=== PATIENT | male | born 1985 | race Two or more races ===

== ENCOUNTER 2019-10-18 14:23 | Emergency (ER) | payer SELFPAY ==
[~2019-10-18] VITALS: Ht 172.7 cm; Wt 75.0 kg
[2019-10-18 14:28] VITALS: BP 152/88
--- NOTE | 2019-10-18 14:42 | PHYS DOC ---
Adult General Chief Complaint Chief Complaint: LACERATION/AVULSION HPI HPI Patient is a 34 year old male who presents secondary to head laceration. He had a pallet fall on his head just prior to arrival and has a 4 cm laceration to the right occipital region without loss of consciousness. Tet anus status is not updated. Feeling normal now. Review of Systems Review of Systems Constitutional: Denies fever or chills [] Eyes: Denies change in visual acuity, redness, or eye pain [] HENT: Denies nasal congestion or sore throat [] Respiratory: Denies cough or shortness of breath [] Cardiovascular: No additional information not addressed in HPI [] GI: Denies abdominal pain, nausea, vomiting, bloody stools or diarrhea [] : Denies dysuria or hematuria [] Musculoskeletal: Denies back pain or joint pain [] Integument: Denies rash or skin lesions [] Neurologic: Denies headache, focal weakness or sensory changes [] Endocrine: Denies polyuria or polydipsia [] All other systems were reviewed and found to be within normal limits, except as documented in this note. Current Medications Current Medications Current Medications Medications (Trade) Dose Ordered Sig/Hero Start Time Stop Time Status Last Admin Dose Admin Acetaminophen/ Hydrocodone Bitart (Lortab 5/325) 1 tab 1X ONCE 10/18/19 14:45 10/18/19 14:46 Allergies Allergies Allergies Coded Allergies Type Severity Reaction Last Updated Verified No Known Drug Allergies 10/18/19 No Physical Exam Physical Exam Constitutional: Well developed, well nourished, no acute distress, non-toxic appearance. [] HENT: Normocephalic, 4 cm laceration to the right occipital region, bilateral external ears normal, oropharynx moist, no oral exudates, nose normal. [] Eyes: PERRLA, EOMI, conjunctiva normal, no discharge. [] Neck: Normal range of motion, no tenderness, supple, no stridor. [] Cardiovascular:Heart rate regular rhythm, no murmur [] Lungs & Thorax: Bilateral breath sounds clear to auscultation [] Abdomen: Bowel sounds normal, soft, no tenderness, no masses, no pulsatile masses. [] Skin: Warm, dry, no erythema, no rash. [] Back: No tenderness, no CVA tenderness. [] Extremities: No tenderness, no cyanosis, no clubbing, ROM intact, no edema. [] Neurologic: Alert and oriented X 3, normal motor function, normal sensory function, no focal deficits noted. [] Psychologic: Affect normal, judgement normal, mood normal. [] EKG EKG [] Radiology/Procedures Radiology/Procedures 4 cm-laceration was cleaned with saline by nursing staff and closed with 4 prabhu by myself. Patient tolerated well. Course & Med Decision Making Course & Med Decision Making Pertinent Labs and Imaging studies reviewed. (See chart for details) Tetanus updated prior to discharge. Given [place] for pain. Dragon Disclaimer Dragon Disclaimer This electronic medical record was generated, in whole or in part, using a voice recognition dictation system. Departure Departure Impression: Primary Impression: Laceration of head Disposition: 01 HOME, SELF-CARE Condition: STABLE Referrals: NO PCP (PCP) Patient Instructions: Staple Care and Removal Additional Instructions: Please follow up with your doctor or return to the ER or go to Urgent care for staple removal in 7-10 days. JANY ONOFRE DO Oct 18, 2019 14:41
[2019-10-18] MEDS ORDERED: HYDROcodone/APAP 5/325MG 1 TAB TABLET PO ONE (14:45)
[2019-10-18] MEDS ORDERED: DIPH,PERTUSS(ACELL),TET VAC/PF 0.5 ML SYRINGE. VAX IM ONE (15:00)
== END 2019-10-18 15:11 | disposition home or self-care (01) ==
LOC: ER 14:23
DX: S01.81XA Laceration without foreign body of other part of head, initial encounter (principal); W19.XXXA Unspecified fall, initial encounter; Y93.89 Activity, other specified; Y92.89 Other specified places as the place of occurrence of the external cause; Y99.8 Other external cause status
CPT/HCPCS: 12013; 90471; 90715; 99283

== ENCOUNTER 2021-06-28 08:30 | Emergency (ER) | payer SELFPAY ==
[~2021-06-28] VITALS: Ht 165.1 cm; Wt 68.0 kg
[2021-06-28 11:15] LABS: BILIRUBIN,URINE NEGATIVE (NEG); CLARITY,URINE CLEAR; COLOR,URINE YELLOW; NITRITE,URINE NEGATIVE (NEG); PH,URINE 5.5 (<5.0-8.0); PROTEIN,URINE NEGATIVE (NEG-TRACE); UROBILINOGEN,URINE 0.2 mg/dL (0.2 mg/dL)
[2021-06-28 11:27] LABS: BACTERIA,URINE 0 /HPF (0-FEW); RBC,URINE 0 /HPF (0-2); WBC,URINE OCC /HPF (0-4)
[2021-06-28] MEDS ORDERED: MORPHINE SULFATE 4 MG/ML INJ. IVP ONE (11:45)
[2021-06-28] MEDS ORDERED: ONDANSETRON PF 4 MG/2 ML VIAL. IVP ONE (11:45)
[2021-06-28] MEDS ORDERED: IV NORMAL SALINE 1000ML BAG 1,000 ML IV ONE (11:45)
--- NOTE | 2021-06-28 11:47 | PHYS DOC ---
Past Medical History Past Medical History: No Pertinent History Past Surgical History: No Surgical History Smoking Status: Never Smoker Alcohol Use: Occasionally General Adult EDM: Chief Complaint: GROIN PAIN HPI: HPI: Patient is a 36 year old male who presents with left-sided groin, testicular, and left-sided flank pain for 5 days. Patient is complaining of pain with urination. Patient reports nausea but denies vomiting or fever. Denies trauma. Patient states he is sexually active with his . Denies multiple partners. Reports taking Tylenol couple days ago with little pain relief. Rating pain 8/10. Denies any other medical history. Review of Systems: Review of Systems: ROS At least 10 ROS systems have been reviewed and are negative except as documented in the HPI. General: Negative except as outlined in HPI above. Skin: Negative except as outlined in HPI above. HEENT: Negative except as outlined in HPI above. Neck: Negative except as outlined in HPI above. Respiratory: Negative except as outlined in HPI above.. Cardiovascular: Negative except as outlined in HPI above. Abdomen: Negative except as outlined in HPI above. : Negative except as outlined in HPI above. Back/MSK: Negative except as outlined in HPI above. Neuro: Negative except as outlined in HPI above. Psych: Negative except as outlined in HPI above. Heart Score: C/O Chest Pain: No Risk Factors: Risk Factors: DM, Current or recent (<one month) smoker, HTN, HLP, family history of CAD, obesity. Risk Scores: Score 0 - 3: 2.5% MACE over next 6 weeks - Discharge Home Score 4 - 6: 20.3% MACE over next 6 weeks - Admit for Clinical Observation Score 7 - 10: 72.7% MACE over next 6 weeks - Early Invasive Strategies Current Medications: Current Medications Medications (Trade) Dose Ordered Sig/Hero Start Time Stop Time Status Last Admin Dose Admin Morphine Sulfate (Morphine Sulfate) 4 mg 1X ONCE 06/28/21 11:45 06/28/21 11:46 Ondansetron HCl (Zofran) 4 mg 1X ONCE 06/28/21 11:45 06/28/21 11:46 Allergies: Allergies: Allergies Coded Allergies Type Severity Reaction Last Updated Verified No Known Drug Allergies 10/18/19 No Physical Exam: PE: Constitutional: Well developed, well nourished, no acute distress, non-toxic appearance. [] HENT: Normocephalic, atraumatic, bilateral external ears normal, oropharynx moist, no oral exudates, nose normal. [] Eyes: PERRLA, EOMI, conjunctiva normal, no discharge. [] Neck: Normal range of motion, no tenderness, supple, no stridor. [] Cardiovascular:Heart rate regular rhythm, no murmur [] Lungs & Thorax: Bilateral breath sounds clear to auscultation [] Abdomen: Bowel sounds normal, soft, left lower quadrant tenderness, no hernia. Left testicletenderness noted, no swelling or warmth to area. Skin: Warm, dry, no erythema, no rash. [] Back: No tenderness, no CVA tenderness. [] Extremities: No tenderness, no cyanosis, no clubbing, ROM intact, no edema. [] Neurologic: Alert and oriented X 3, normal motor function, normal sensory function, no focal deficits noted. [] Psychologic: Affect normal, judgement normal, mood normal. [] Current Patient Data: Labs: Laboratory Tests Test 06/28/21 10:50 Urine Collection Type Void Urine Color Yellow Urine Clarity Clear Urine pH 5.5 (<5.0-8.0) Urine Specific [place] 1.025 (1.000-1.030) Urine Protein Negative mg/dL (NEG-TRACE) Urine Glucose (UA) Negative mg/dL (NEG) Urine Ketones (Stick) Negative mg/dL (NEG) Urine Blood Negative (NEG) Urine Nitrite Negative (NEG) Urine Bilirubin Negative (NEG) Urine Urobilinogen Dipstick 0.2 mg/dL (0.2 mg/dL) Urine Leukocyte Esterase Negative (NEG) Urine RBC 0 /HPF (0-2) Urine WBC Occ /HPF (0-4) Urine Squamous Epithelial Cells Few /LPF Urine Bacteria 0 /HPF (0-FEW) Urine Mucus Marked /LPF Vital Signs: Vital Signs Date Time Temp Pulse Resp B/P (MAP) Pulse Ox O2 Delivery O2 Flow Rate FiO2 06/28/21 10:05 98.5 60 16 149/92 (111) 100 Room Air 98.5 EKG: EKG: [] Radiology/Procedures: Radiology/Procedures: []Examination: CT of the abdomen pelvis without contrast HISTORY: History of left lower abdominal pain COMPARISON: None available TECHNIQUE: Axial CT images of the abdomen pelvis are performed without contrast. Coronal and sagittal reformats are performed. Exposure: One or more of the following individualized dose reduction techniques were utilized for this examination: 1. Automated exposure control 2. Adjustment of the mA and/or kV according to patient size 3. Use of iterative reconstruction technique FINDINGS: Moderate consolidation changes identified in the right lower lobe of the lung likely infiltrate or pneumonia. No evidence of free air identified in the abdomen The evaluation of the solid organs is limited due to lack of IV contrast. The evaluation of bowel is limited due to lack of oral contrast. The visualized noncontrasted liver, spleen, adrenals grossly appears unremarkable. The gallbladder is mildly distended. The stomach is mildly distended with visualized pancreas grossly appears unremarkable. Small bowel is nondilated. Mild thickened appearance of the wall of the distal ileum just proximal to the ileocecal junction. The appendix is not well-visualized. The urinary bladder is mildly distended No evidence of lytic bony destructive lesion. IMPRESSION: 1. Mild thickened appearance of the wall of the distal ileal loops could be mild enteritis. 2. Focal consolidation right lower lobe of the lung likely pneumonia. Follow-up to resolution. Electronically signed by: Oneal Romo MD (06/28/2021 12:11 PM) [id number] EXAMINATION: US TESTICULAR, 06/28/2021 11:40 AM CLINICAL INDICATION: Left-sided testicular pain TECHNIQUE: Grayscale, color and spectral Doppler ultrasound images of the scrotum and testicles COMPARISON: None. FINDINGS: The right testicle measures 4.3 x 2.8 x 1.9 cm. The left testicle 4.3 x 2.8 x 2.1 cm. Both testicles are normal in echogenicity and homogeneous without evidence of mass. There is normal testicular blood flow bilaterally. There is a 1.1 cm anechoic left epididymal head cyst. Epididymides are otherwise normal in appearance. No hydrocele. IMPRESSION: 1. No acute abnormality of the testicles. 2. Left epididymal head cyst. Electronically signed by: Radha Rahman MD (06/28/2021 12:27 PM) [id number] Course & Med Decision Making: Course & Med Decision Making Pertinent Labs and Imaging studies reviewed. (See chart for details) [] 36-year-old male presents with left-sided lower abdominal tenderness that radiates to left testicle. Patient is also reporting some left-sided flank pain. Work-up in ER consist of labs, urinalysis, GC/chlamydia, CT abdomen and pelvis, ultrasound of testicle. UA is negative for infection or blood. CBC, CMP negative for acute abnormality. CT of abdomen pelvis and ultrasound of testicles are also unremarkable. Patient was likely has recently passed a kidney stone which is causing discomfort. Discussed results with patient. Advised patient to take ibuprofen for pain. Patient should follow-up with his PCP in the next few days. Advised patient to return to emergency room with worsening symptoms or concerns. Patient verbalizes he understands discharge instructions. Patient is hemodynamically stable upon disposition Dragon Disclaimer: [place] Disclaimer: This electronic medical record was generated, in whole or in part, using a voice recognition dictation system. Departure Departure Impression: Primary Impression: Abdominal pain Qualified Codes: R10.32 - Left lower quadrant pain Additional Impression: Dysuria Disposition: HOME / SELF CARE / HOMELESS Condition: STABLE Referrals: NO PCP (PCP) Patient Instructions: Abdominal Pain (Nonspecific) Additional Instructions: You were seen in the emergency room for left lower abdominal pain that radiated down to your groin. All of your labs were unremarkable. Ultrasound and CT of your abdomen were both unremarkable. Urine is negative for infection. Take ibuprofen at home for pain. Please follow-up with your PCP in the next few days. Return emergency room if you have worsening symptoms or concerns. EMERGENCY DEPARTMENT GENERAL DISCHARGE INSTRUCTIONS Thank you for coming to [facility] Emergency Department (ED) today and trusting us with you care. We trust that you had a positive experience in our Emergency Department. If you wish to speak to the department management, you may call the Director at [phone]. YOUR FOLLOW UP INSTRUCTIONS ARE FOLLOWS: 1. Do you have a private Doctor? If you do not have a private doctor, please ask for a resource list of physicians or clinics that may be able to assist you with fol low up care. 2. The Emergency Physicain has interpreted your x-rays. The X-Ray specialist will also review them. If there is a change in the findings, you will be notified in 48 hours when at all possible. 3. A lab test or culture has been done, your results will be reviewed and you will be notified if you need a change in treatment. ADDITIONAL INSTRUCTIONS AND INFORMATION: 1. Your care today has been supervised by a physician who is specially trained in emergency care. Many problems require more than one evaluation for a complete diagnosis and treatment. We recommend that you schedule your follow up appointment as r ecommended to ensure complete treatment of you illness or injury. If you are unable to obtain follow up care and continue to have a problem, or if your condition worsens, we recommend that you return to the ED. 2. We are not able to safely determine your condition over the phone nor are we able to give sound medical advice over the phone. For these safety reasons, if you call for medical advice we will ask you to come to the ED for further evaluation. 3. If you have any questions regarding these discharge instructions please call the ED at [phone]. SAFETY INFORMATION: In the interest of safety, wellness, and injury prevention; we encourage you to wear your sealbelt, if you smoke; quite smoking, and we encourage family to use a protective helmet for bicycling and other sporting events that present an increased risk for head injury. IF YOUR SYMPTOMS WORSEN OR NEW SYMPTOMS DEVELOP, OR YOU HAVE CONCERNS ABOUT YOUR CONDITION; OR IF YOUR CONDITION WORSENS WHILE YOU ARE WAITING FOR YOUR FOLLOW UP APPOINTMENT; EITHER CONTACT YOUR PRIMARY CARE DOCTOR, THE PHYSICIAN WHOSE NAME AND NUMBER YOU WERE GIVEN, OR RETURN TO THE ED IMMEDIATELY. Scripts Hydrocodone Bit/Acetaminophen (HYDROCODONE-APAP 5-325 ) 1 Tab Tablet 1 TAB PO PRN Q6HRS PRN for PAIN for 2 Days, #8 TAB 0 Refills Prov: EVANS FOUNTAIN APRN 06/28/21 EVANS FOUNTAIN APRN Jun 28, 2021 11:47
--- NOTE | 2021-06-28 12:14 | RAD ---
Examination: CT of the abdomen pelvis without contrast HISTORY: History of left lower abdominal pain COMPARISON: None available TECHNIQUE: Axial CT images of the abdomen pelvis are performed without contrast. Coronal and sagittal reformats are performed. Exposure: One or more of the following individualized dose reduction techniques were utilized for thi s examination: 1. Automated exposure control 2. Adjustment of the mA and/or kV according to patient size 3. Use of iterative reconstruction technique FINDINGS: Moderate consolidation changes identified in the right lower lobe of the lung likely infiltrate or p neum[place]. No evidence of free air identified in the abdomen The evaluation of the solid organs is limited due to lack of IV contrast. The evaluation of bowel is limited due to lack of oral contrast. The visualized noncontrasted liver, spleen, adrenals grossly ap pears unremarkable. The gallbladder is mildly distended. The stomach is mildly distended with visuali zed pancreas grossly appears unremarkable. Small bowel is nondilated. Mild thickened appearance of th e wall of the distal ileum just proximal to the ileocecal junction. The appendix is not well-visualiz ed. The urinary bladder is mildly distended No evidence of lytic bony destructive lesion. IMPRESSION: 1. Mild thickened appearance of the wall of the distal ileal loops could be mild enteritis. 2. Focal consolidation right lower lobe of the lung likely pneumonia. Follow-up to resolution. Electronically signed by: Oneal Romo MD (06/28/2021 12:11 PM) [id number]
[2021-06-28 12:21] LABS: BASO % 0 % (0-3); EOS % 0 % (0-3); HEMATOCRIT 43.4 % (39.0-53.0); HEMOGLOBIN 13.4 g/dL (13.0-17.5); LYMPH # 2.7 x10^3/uL (1.0-4.8); LYMPH % 43 % (24-48); MEAN CORPUSCULAR HEMOGLOBIN 20 pg (25-35); MEAN CORPUSCULAR HGB CONC 31 g/dL (31-37); MEAN CORPUSCULAR VOLUME 65 fL (79-100); MONO # 0.6 x10^3/uL (0.0-1.1); MONO % 9 % (0-9); NEUT % 47 % (31-73); PLATELET COUNT 203 x10^3/uL (140-400); RED BLOOD COUNT 6.65 x10^6/uL (4.30-5.70); RED CELL DISTRIBUTION WIDTH 15.1 % (11.5-14.5); WHITE BLOOD COUNT 6.3 x10^3/uL (4.0-11.0)
--- NOTE | 2021-06-28 12:29 | RAD ---
EXAMINATION: US TESTICULAR, 06/28/2021 11:40 AM CLINICAL INDICATION: Left-sided testicular pain TECHNIQUE: Grayscale, color and spectral Doppler ultrasound images of the scrotum and testicles COMPARISON: None. FINDINGS: The right testicle measures 4.3 x 2.8 x 1.9 cm. The left testicle 4.3 x 2.8 x 2.1 cm. Both testicles are normal in echogenicity and homogeneous without evidence of mass. There is normal testicular blood flow bilaterally. There is a 1.1 cm anechoic left epididymal head cyst. Epididymides are otherwise n ormal in appearance. No hydrocele. IMPRESSION: 1. No acute abnormality of the testicles. 2. Left epididymal head cyst. Electronically signed by: Radha Rahman MD (06/28/2021 12:27 PM) [id number]
[2021-06-28 12:31] LABS: CALCIUM 8.5 mg/dL (8.5-10.1); CREATININE 0.8 mg/dL (0.7-1.3); POTASSIUM 4.1 mmol/L (3.5-5.1)
[2021-06-28 12:37] LABS: ALBUMIN 3.5 g/dL (3.4-5.0); ALBUMIN/GLOBULIN RATIO 0.9 (1.0-1.7); TOTAL BILIRUBIN 0.3 mg/dL (0.2-1.0); TOTAL PROTEIN 7.2 g/dL (6.4-8.2)
[2021-06-28 13:17] LABS: PLT ESTIMATE ADEQUATE (ADEQUATE)
[2021-06-28 13:19] LABS: ANISOCYTOSIS SLIGHT; HYPOCHROMIA MOD; MICROCYTOSIS PRESENT; TARGET CELLS PRESENT
[2021-06-28 13:46] VITALS: BP 153/89
[2021-06-28] MEDS ORDERED: HYDR-2761 PO (14:00)
== END 2021-06-28 14:00 | disposition home or self-care (01) ==
LOC: ER 08:30
DX: R10.32 Left lower quadrant pain (principal); R30.0 Dysuria; N50.812 Left testicular pain
CPT/HCPCS: 36415; 74176; 76870; 80053; 81001; 83690; 85025; 87491; 87591; 96361; 96374; 96375; 99285; J2270; J2405; J7030